=== PATIENT | male | born 1995 | race Caucasian/White ===

== ENCOUNTER 2018-01-06 02:40 | Emergency (ER) | payer SELFPAY ==
[~2018-01-06] VITALS: Ht 180.3 cm; Wt 99.8 kg
[2018-01-06 02:45] VITALS: Ht 180.3 cm; Wt 99.8 kg
[2018-01-06 05:56] VITALS: BP 162/92
== END 2018-01-06 05:56 | disposition home or self-care (01) ==
LOC: ED 02:40
DX: S91.311A Laceration without foreign body, right foot, initial encounter (principal); X58.XXXA Exposure to other specified factors, initial encounter; Y93.89 Activity, other specified; Y92.89 Other specified places as the place of occurrence of the external cause; Y99.8 Other external cause status
CPT/HCPCS: J2001

== ENCOUNTER 2018-01-13 13:22 | Emergency (ER) | payer MEDICAID ==
[~2018-01-13] VITALS: Ht 180.3 cm; Wt 109.8 kg
[2018-01-13 13:39] VITALS: BP 126/73; Ht 180.3 cm; Wt 109.8 kg
== END 2018-01-13 14:14 | disposition home or self-care (01) ==
LOC: ED 13:22
DX: S91.311D Laceration without foreign body, right foot, subsequent encounter (principal); X58.XXXD Exposure to other specified factors, subsequent encounter

== ENCOUNTER 2018-06-10 15:10 | Emergency (ER) | payer SELFPAY ==
[~2018-06-10] VITALS: Ht 180.3 cm; Wt 109.3 kg
[2018-06-10 15:32] VITALS: Ht 180.3 cm; Wt 109.3 kg
[2018-06-10 17:48] VITALS: BP 128/71
== END 2018-06-10 17:48 | disposition home or self-care (01) ==
LOC: ED 15:10
DX: M54.6 Pain in thoracic spine (principal); M79.10 Myalgia, unspecified site; M25.519 Pain in unspecified shoulder; V43.52XA Car driver injured in collision with other type car in traffic accident, initial encounter; Y93.I9 Activity, other involving external motion; Y92.413 State road as the place of occurrence of the external cause; Y99.8 Other external cause status
CPT/HCPCS: J1885